=== PATIENT | female | born 1985 ===

== ENCOUNTER 2024-04-28 10:45 | Inpatient (IN) | payer OTHER ==
[~2024-04-28] VITALS: Ht 162.6 cm; Wt 83.0 kg
[2024-04-28 12:53] LABS: HEMATOCRIT 36.5 % (36.0-45.00); HEMOGLOBIN 12.1 g/dL (12.0-15.00); MEAN CELL VOLUME 82.8 fL (80.00-100.00); MEAN CORPUSCULAR HEMOGLOBIN 27.4 pg (27.00-32.0); MEAN CORPUSCULAR HGB CONC 33.1 g/dl (32.0-36.0); PLATELET COUNT 356 K/uL (150-450); RED BLOOD COUNT 4.41 M/uL (4.00-6.00); RED CELL DISTRIBUTION WIDTH 13.7 % (11.5-14.5)
[2024-04-28 12:54] LABS: URINE APPEARANCE Clear; URINE BILIRRUBIN Negative (NEGATIVE); URINE BLOOD Moderate; URINE COLOR Yellow; URINE GLUCOSE Negative (NEGATIVE); URINE KETONE Negative (NEGATIVE); URINE LEUKOCYTE Negative; URINE NITRATE Negative; URINE PROTEIN Negative (NEGATIVE); URINE UROBILINOGEN 0.2 E.U./dl
[2024-04-28 12:57] LABS: URINE BACTERIA 675.2 uL (0.0-1933); URINE EPITHELIAL CELLS 31.1 uL (0.0-38.8); URINE RBC 4.2 uL (0.0-20.8)
[2024-04-28] MEDS ORDERED: COZAAR25 MG PO (13:00)
[2024-04-28 13:15] LABS: PARTIAL THROMBOPLASTIN TIME 24.8 SECONDS (22.0-34.0); PROTHROMBIN TIME 10.9 SECONDS (9.0-11.5)
[2024-04-28 13:47] LABS: ALBUMIN 3.6 gm/dL (3.4-5.0); BILIRUBIN TOTAL 0.25 mg/dL (0.3-1.2); CALCIUM 9.4 mg/dL (8.5-10.1); CREATININE SERUM 0.55 mg/dL (0.55-1.02); GFR 122.42; GLOBULINA 3.8 G/DL (2.4-3.5); POTASSIUM 4.4 mEq/L (3.5-5.1); TOTAL PROTEIN 7.4 gm/dL (6.4-8.2)
[2024-05-03] MEDS ORDERED: POVIDONE-IODINE 118 ML BOTT TOP ONE (14:30)
[2024-05-03] MEDS ORDERED: CEFOXITIN SODIUM 2,000 MG VIAL IV ONE (14:30)
[2024-05-03] MEDS ORDERED: KETOROLAC TROMETHAMINE 60 MG VIAL IM STA (16:56)
[2024-05-03] MEDS ORDERED: MEPERIDINE HCL/PF 50 MG/ML VIAL IM PRN (17:00)
[2024-05-03] MEDS ORDERED: RINGERS SOLUTION,LACTATED 1,000 ML IV SCH (17:00)
[2024-05-03] MEDS ORDERED: PROMETHAZINE HCL 25 MG/ML AMPUL IM PRN (17:00)
[2024-05-03] MEDS ORDERED: KETOROLAC TROMETHAMINE 60 MG VIAL IM ONE (18:41)
[2024-05-03] MEDS ORDERED: PROMETHAZINE HCL 25 MG/ML AMPUL ONE (19:51)
[2024-05-03] MEDS ORDERED: hydrALAZINE HCL 20 MG VIAL ONE (21:16)
[2024-05-03 22:12] LABS: HEMATOCRIT 34.7 % (36.0-45.00); HEMOGLOBIN 11.3 g/dL (12.0-15.00); MEAN CELL VOLUME 82.7 fL (80.00-100.00); MEAN CORPUSCULAR HGB CONC 32.7 g/dl (32.0-36.0); PLATELET COUNT 363 K/uL (150-450); RED BLOOD COUNT 4.19 M/uL (4.00-6.00); RED CELL DISTRIBUTION WIDTH 13.4 % (11.5-14.5)
[2024-05-04] MEDS ORDERED: OxyCODONE HCL/APAP UD (PERCOCET) PO PRN
== END 2024-05-06 12:06 | disposition home or self-care (01) | DRG 743 ==
LOC: SURH 05-03 10:45 → O/R 05-03 12:07 → SURH 05-03 13:30 → OB/GYN 05-03 17:33
PROVIDERS: Obstetrics & Gynecology; ADMIT Obstetrics & Gynecology; ATTEND Obstetrics & Gynecology
PROC: 0UT70ZZ Resection of Bilateral Fallopian Tubes, Open Approach (ICD-10-PCS; 2024-05-03)
PROC: 0UT90ZZ Resection of Uterus, Open Approach (ICD-10-PCS; principal; 2024-05-03 13:30)
DX: N85.01 Benign endometrial hyperplasia (principal); Z20.822 Contact with and (suspected) exposure to COVID-19; N73.6 Female pelvic peritoneal adhesions (postinfective)